=== PATIENT | female | born 1985 | race Hispanic/Latino ===

== ENCOUNTER 2018-07-02 19:23 | Emergency (ER) | payer MEDICAID, OTHER, SELFPAY ==
[2018-07-02 20:35] LABS: #Basophils 0.1 thou/uL (0.0-0.2); #Lymphocytes 2.5 thou/uL (1.20-3.40); #Monocytes 0.6 thou/uL (0.11-0.59); #Neutrophils 9.9 thou/uL (1.40-6.50); %Basophils 0.6 % (0.0-1.0); %Eosinophils 0.3 % (0.0-10.0); %Lymphocytes 18.9 % (21.0-51.0); %Monocytes 4.3 % (0.0-10.0); Mean Corpuscular HGB CONC 31.5 g/dL (32.0-36.0); Mean Corpuscular Hemoglobin 24.3 pg (27.0-31.0); Mean Corpuscular Volume 77.2 fL (78.0-98.0); Mean Platelet Volume 8.2 fL (7.4-10.4); Platelet Count 339 thou/uL (130-400); RBC Distribution Width 17.2 % (11.5-14.5); Red Blood Cell (RBC) Count 4.53 mill/uL (4.20-5.40)
[2018-07-02 21:47] LABS: Bilirubin Negative (Negative); Blood, Urine Negative (Negative); Clarity CLEAR (Clear); Glucose, Urine (Dipstick) Negative (Negative); Leukocyte Negative (Negative); Nitrite Negative (Negative); Protein, Urine (Dipstick) Negative (Neg-Trace); Urobilinogen 0.2 mg/dL (0.2-1.0); pH, Urine 5.5 (5.0-9.0)
== END 2018-07-02 23:15 | disposition home or self-care (01) ==
LOC: ERS 19:23
DX: O20.0 Threatened abortion (principal); Z3A.08 8 weeks gestation of pregnancy
CPT/HCPCS: 36415; 51701; 81003; 84702; 85025; 86900; 86901; A4353

== ENCOUNTER 2019-01-18 13:39 | Day surgery (SDC) | payer OTHER ==
[2019-01-18 14:12] VITALS: BP 117/65; TEMP 98.4
[2019-01-18 14:16] VITALS: BMI 32.8
[2019-01-18 14:36] LABS: Amnisure Test No Membranes Rupture (No Rupture)
[2019-01-18 14:37] LABS: Amnisure Internal Control QC ACCEPTABLE (ACCEPTABLE)
--- NOTE | 2019-01-18 18:54 | SS ---
DATE OF ADMISSION: 01/18/2019 DATE OF DISCHARGE: 01/18/2019 LABOR AND DELIVERY TRIAGE NOTE REGULAR PHYSICIAN: Josué Hernandez MD EVALUATING PHYSICIAN: Dillon Gupta MD CHIEF COMPLAINT: Contractions at home. HISTORY OF PRESENT ILLNESS: Ms. Avel Schwarz is a 33-year-old , G5, P3, with an estimated date of confinement of 02/12/2019, who presents complaining of irregular uterine contractions throughout the day. She denies ruptured membranes or vaginal bleeding. Her care has been with Dr. Hernandez and has been without complications. PAST OBSTETRICAL HISTORY: Includes one vaginal delivery followed by three C sections, one of which was . PAST MEDICAL HISTORY: None. PAST SURGICAL HISTORY: C-sections x3. CURRENT MEDICATIONS: vitamins and iron. ALLERGIES: NO KNOWN ALLERGIES. SOCIAL HISTORY: Denies tobacco, alcohol, or drug use. FAMILY HISTORY: Unremarkable. REVIEW OF SYSTEMS: Denies nausea, vomiting, fever, chills, vaginal bleeding, or ruptured membranes. PHYSICAL EXAMINATION: VITAL SIGNS: Stable and she is afebrile. GENERAL: In triage, she is pleasant and in no acute distress. ABDOMEN: Soft, nontender, and gravid. Pelvic examination initially shows the cervix to be fingertip thick and high per the labor nurse. An AmniSure was performed, and it is negative. heart rate tracing is stable and only an occasional contraction is seen. The patient is observed over an hour and I rechecked her myself. Cervical exam remained fingertip thick and high. ASSESSMENT: 1. 36.5 week intrauterine . 2. No evidence of active labor at this time. PLAN: The patient will be discharged home. She was given complete labor precautions. She states that she has an appointment with Dr. Hernandez in the next week. He was notified and is aware of the plan. Job ID: [id number] MTDD
== END 2019-01-18 16:20 | disposition home or self-care (01) ==
LOC: L&D/OP 13:39
PROVIDERS: ATTEND Family Medicine
DX: O47.03 False labor before 37 completed weeks of gestation, third trimester (principal); Z3A.36 36 weeks gestation of pregnancy; Z79.899 Other long term (current) drug therapy
CPT/HCPCS: 84112; 99284

== ENCOUNTER 2019-02-05 12:20 | Inpatient (IN) | payer OTHER, SELFPAY ==
[2019-02-05 12:49] VITALS: BMI 29.7
[2019-02-05] MEDS ORDERED: Butorphanol Tartrate 1 MG/ML VIAL SLOW IVP PRN (13:18)
[2019-02-05] MEDS ORDERED: Promethazine HCl 25 MG/ML VIAL IM PRN ×2 (13:18→17:51)
[2019-02-05] MEDS ORDERED: Ondansetron PF 4 MG/2 ML Vial IVP PRN ×3 (13:18→20:16)
--- NOTE | 2019-02-05 13:23 | PDOC.LDHP ---
Labor and Delivery H&P HPI: Patient of Dr David CERNA 39 weeks CC: possible CTX, Prior CS x 3 Location; Triage Time: [address]. Patient is a 33 yo living 3 (one IUFD at 26 weeks), prior CS x 3 (first delivery was vaginal)...here for possible CTX. No LOF, no VB , good FM. Review of systems: Complete ROS completed and as per HPI Current gestational age (weeks): 39 Dating criteria: last menstrual period Grav: 5 Para: 4 OB History Details: Living 3; CS x 3 Current complications: none Abnormal US findings: No Current medications: pre- vitamins Previous surgical history: low tranverse CS (x 3) Allergies/Adverse Reactions: Allergies Allergy/AdvReac Type Severity Reaction Status Date / Time No Allergy Information Allergy Verified 02/05/19 12:49 Available - Physical Exam Vital signs reviewed and normal: yes (109/68 98.2 90s afebrile) General: NAD Heart: RRR Lungs: CTAB Abdomen: gravid Extremeties: no edema FHT: category 1 [place] contractions every: irritability, irregular - Assessment 39 weeks (full term) with prior CS x 3, possible CTX. - Plan Plan: admit to L&D, anesthesia consult for pain management, other (As the patient is at 39 weeks with prior CS x 3, regardless of cervical exam..I am prefer to admit and repeat her CS today to prevent complications with persistent latent labor. I will communicate this to Dr Hernandez, and notify anesthesia. T&S as prior CS x 3. Routine admit labs. Check CX for record)
--- NOTE | 2019-02-05 13:29 | PDOC.EVN ---
Event Note - Event Note Event Note: Follow up: Per RN, Dr Hernandez would prefer not to perform a CS on her today. He has asked to check her cervix and place her in labor observation. He has requested a cervix check now then eval further prior to performing a CS. I have released care back to Dr Hernandez as her treating physician. Care and disposition per Dr Hernandez
[2019-02-05] MEDS ORDERED: Bicitra 30 ML UDCUP PO SCH (13:30)
[2019-02-05] MEDS ORDERED: CEFAZOLIN 2 GM in Premix Bag 1 BAG IVPB SCH (13:30)
[2019-02-05] MEDS: Lactated Ringer's 1,000 ML IV SCH ×2 (13:41→16:47)
[2019-02-05 13:58] LABS: Hemoglobin 10.3 g/dL (12.0-16.0); Mean Corpuscular HGB CONC 33.2 g/dL (32.0-36.0); Mean Corpuscular Hemoglobin 29.3 pg (27.0-31.0); Mean Corpuscular Volume 88.1 fL (78.0-98.0); Mean Platelet Volume 8.6 fL (7.4-10.4); Platelet Count 175 thou/uL (130-400); RBC Distribution Width 12.5 % (11.5-14.5); Red Blood Cell (RBC) Count 3.51 mill/uL (4.20-5.40); White Blood Cell (WBC) Count 6.9 thou/uL (4.8-10.8)
[2019-02-05 14:36] LABS: Syphilis Antibody Nonreactive (Nonreactive); Syphilis Antibody Index 0.03 S/CO (<1.00 Non-Reactive)
[2019-02-05 14:45] LABS: HBSAg Index 0.32 S/CO (0-0.99); HIV (1/2) Antibody/Antigen Non-Reactive (NonReactive); Hep B Surf Ag Non-Reactive S/CO (NonReactive)
[2019-02-05] MEDS ORDERED: Ketorolac Tromethamine 30 MG/ML VIAL ONE ×2 (16:36→17:07)
[2019-02-05] MEDS ORDERED: Ondansetron PF 4 MG/2 ML Vial ONE ×2 (16:36→17:07)
[2019-02-05] MEDS ORDERED: Dexamethasone 20 MG/5 ML VIAL ONE (16:36)
[2019-02-05] MEDS ORDERED: PHENYLEPHRINE-NS 100 MCG/ML 10 ML SYRINGE ONE ×2 (16:36→17:07)
[2019-02-05] MEDS ORDERED: MORPHINE 5 MG/10 ML PF VIAL ONE (17:06)
[2019-02-05] MEDS ORDERED: Fentanyl 100 MCG/2 ML VIAL ONE (17:06)
[2019-02-05] MEDS ORDERED: ePHEDrine/0.9% NaCl/PF SYRINGE 50 mg/10 ml ONE (17:07)
[2019-02-05] MEDS ORDERED: Oxytocin 10 UNITS/ML VIAL ONE (17:07)
[2019-02-05] MEDS ORDERED: Dexamethasone 4 mg/ml Vial ONE (17:07)
[2019-02-05] MEDS ORDERED: HYDROmorphone 2 MG/ML VIAL SLOW IVP PRN (17:51)
[2019-02-05] MEDS ORDERED: Ketorolac Tromethamine 30 MG/ML VIAL IVP PRN (17:51)
[2019-02-05] MEDS ORDERED: L&D-Morphine 4 MG/ML VIAL SLOW IVP PRN (17:51)
[2019-02-05] MEDS ORDERED: Naloxone HCl 0.4 mg/ml Vial IVP PRN ×2 (17:51)
[2019-02-05] MEDS ORDERED: diphenhydrAMINE 50 MG/ML VIAL IVP PRN (17:51)
[2019-02-05] MEDS ORDERED: Meperidine HCl/PF 25 MG/ML VIAL SLOW IVP PRN (17:51)
[2019-02-05] MEDS ORDERED: Eucerin (Mineral Oil/Petrolatum,White) 30 gm Jar TOP PRN (17:51)
[2019-02-05] MEDS ORDERED: Promethazine HCl 25 MG SUPP PR PRN (17:51)
[2019-02-05] MEDS ORDERED: Naloxone HCl 0.4 mg/ml Vial IV PRN (17:51)
[2019-02-05] MEDS ORDERED: Ondansetron HCl/PF 4 MG/2 ML Vial IVP PRN (17:51)
[2019-02-05] MEDS ORDERED: Communication Order-Pharmacy FS SCH (18:00)
[2019-02-05] MEDS ORDERED: Ketorolac Tromethamine 30 MG/ML VIAL IVP SCH (18:00)
[2019-02-05] MEDS ORDERED: Simethicone Chewable 80 MG TAB PO PRN (20:16)
[2019-02-05] MEDS ORDERED: Lactated Ringer's 1,000 ML IV SCH (20:16)
[2019-02-05] MEDS ORDERED: Bisacodyl 10 MG SUPP PR PRN (20:16)
[2019-02-05] MEDS ORDERED: Lanolin Ointment 7 GM TUBE TOP PRN (20:16)
[2019-02-05] MEDS ORDERED: NS / Oxytocin 40 units/1000ml 1,000 ML IV SCH (20:16)
[2019-02-05] MEDS ORDERED: diphenhydrAMINE 25 MG CAP PO PRN (20:16)
[2019-02-05] MEDS ORDERED: Meperidine HCl/PF 25 MG/ML VIAL IM PRN (20:16)
[2019-02-05] MEDS: Ibuprofen 800 MG TAB PO SCH (22:00)
[2019-02-05] MEDS: Ferrous Sulfate 325 MG TAB PO SCH (22:00)
[2019-02-05] MEDS: Docusate Calcium (SURFAK) 240 MG CAP PO SCH (22:00)
--- NOTE | 2019-02-05 23:50 | OP ---
DATE OF PROCEDURE: 02/05/2019 PROCEDURE PERFORMED: Repeat low-transverse section. SURGEON: Josué Hernandez MD PERFECT BINDER FEEDER OFFBEARER SURGEON: Bryce Summers MD. ANESTHESIA: Spinal. ESTIMATED BLOOD LOSS: 650 mL. QUANTITATIVE BLOOD LOSS: 520 mL. PREPROCEDURE DIAGNOSES: 1. Term intrauterine at 39.0 weeks in labor. 2. History of section x3. POSTPROCEDURE DIAGNOSES: 1. Term intrauterine , delivered. 2. History of section x3. 3. Mild abdominal adhesions. 4. Mild diastasis recti. INDICATIONS: Ms. Avel Schwarz is a 33-year-old 5, para 4-0-0-1 at 39.0 weeks, who presented to Labor and Delivery this afternoon with chief complaint of contractions. She is initially admitted to the Labor and Delivery for observation. When her contractions did not resolve, the decision was made to proceed with repeat section. DESCRIPTION OF PROCEDURE: The patient provided informed consent after risks, benefits, and alternatives were explained. She was taken to the operating room and spinal anesthesia was initiated. She was then placed in the supine position with left lateral tilt and prepped and draped in the usual sterile fashion. She received preoperative antibiotics of Ancef 2 g IV. Pfannenstiel skin incision was made with a scalpel and carried down to the level of fascia which was sharply nicked. The fascial incision was extended in the superior lateral fashion using curved Mendez scissors. At this time, there were peritoneal adhesions noted to the upper portion of the fascia and as the fascia was dissected away from the underlying rectus muscles, the abdominal cavity was entered bluntly under direct visualization. The remaining rectus muscles and peritoneum were then retracted manually. Bladder blade was placed and the lower uterine segment was visualized. A bladder flap was made using Metzenbaum scissors. Low transverse score was made with a clean scalpel and the uterine cavity was entered sharply in the midline. Clear fluid was noted at this time. Hysterotomy was extended manually. The 's head was manually elevated to the hysterotomy and delivered through using fundal pressure. Nuchal cord x2 was noted and was easily reduced prior to delivery of the body. Delayed cord clamping was utilized for 30 seconds before the cord was cut and clamped and the infant was handed off to the awaiting [place] [facility]. Cord blood was collected for analysis and the placenta was manually extracted. The uterus was exteriorized and the apices and lower segment were identified and clamped with ring forceps. The hysterotomy was closed using an 0 Vicryl suture in a running locking fashion. Two figure-of- eight stitches using 0 Vicryl were required to control hemostasis along the hysterotomy. Seprafilm was placed and the uterus was placed back in the abdominal cavity. Hysterotomy was inspected a final time and noted to be hemostatic. The perineum was reapproximated using a 3-0 Vicryl suture in a running nonlocking fashion. The fascia and subcutaneous tissues were inspected and all bleeding vessels were controlled with the Bovie cautery. The fascia was reapproximated using 0 PDS in a running nonlocking fashion. Subcutaneous tissues were irrigated before being reapproximated using 3 simple interrupted 3-0 Vicryl sutures. Skin was reapproximated with martina. A pressure dressing was applied. Counts were correct x3. The patient will go to the unit after routine care and recovery. Both the patient and the child tolerated the procedure well. FINDINGS: 1. Intact grossly normal-appearing placenta with 3-vessel cord discarded. 2. Grossly normal viable male infant, born at 17:40 with Apgars of 9 and 9 at 1 and 5 minutes respectively. 3. Mild intraabdominal adhesions that did not complicate the surgery. 4. Soriano catheter draining clear urine pre- and postoperatively. Dr. Hernandez was present in the OR for the entire procedure. Job ID: [id number] [facility]
[2019-02-06] MEDS: Ibuprofen 800 MG TAB PO SCH ×3 (07:34→15:34)
[2019-02-06] MEDS: Prenatal Vitamin 1 TAB PO SCH (08:22)
[2019-02-06] MEDS: Ferrous Sulfate 325 MG TAB PO SCH (08:23)
[2019-02-06] MEDS: Docusate Calcium (SURFAK) 240 MG CAP PO SCH ×2 (08:23→21:01)
[2019-02-06 08:27] LABS: Hemoglobin 9.2 g/dL (12.0-16.0); Mean Corpuscular HGB CONC 34.5 g/dL (32.0-36.0); Mean Corpuscular Hemoglobin 29.9 pg (27.0-31.0); Mean Corpuscular Volume 86.7 fL (78.0-98.0); Mean Platelet Volume 8.9 fL (7.4-10.4); Platelet Count 168 thou/uL (130-400); RBC Distribution Width 12.3 % (11.5-14.5); Red Blood Cell (RBC) Count 3.08 mill/uL (4.20-5.40); White Blood Cell (WBC) Count 11.3 thou/uL (4.8-10.8)
[2019-02-06] MEDS: HYDROcodone/Acetaminophen 5/325 mg Tablet PO PRN ×2 (13:29→21:03)
[2019-02-07] MEDS: Ibuprofen 800 MG TAB PO SCH ×4 (00:27→22:19)
[2019-02-07] MEDS: Ferrous Sulfate 325 MG TAB PO SCH ×3 (02:21→20:52)
[2019-02-07] MEDS: Prenatal Vitamin 1 TAB PO SCH (09:22)
[2019-02-07] MEDS: Docusate Calcium (SURFAK) 240 MG CAP PO SCH ×2 (09:22→20:48)
[2019-02-07] MEDS: HYDROcodone/Acetaminophen 5/325 mg Tablet PO PRN ×3 (09:22→20:47)
[2019-02-08] MEDS: HYDROcodone/Acetaminophen 5/325 mg Tablet PO PRN ×2 (04:31→08:41)
[2019-02-08] MEDS: Ibuprofen 800 MG TAB PO SCH (06:26)
[2019-02-08] MEDS: Prenatal Vitamin 1 TAB PO SCH (08:41)
[2019-02-08] MEDS: Docusate Calcium (SURFAK) 240 MG CAP PO SCH (08:41)
[2019-02-08] MEDS: Ferrous Sulfate 325 MG TAB PO SCH (08:41)
[2019-02-08 08:49] VITALS: BP 102/58; TEMP 98.2
== END 2019-02-08 11:40 | disposition home or self-care (01) | DRG 788 ==
LOC: L&D/OP 12:20 → L&D 17:10 → 3SW 20:38
PROVIDERS: ADMIT Family Medicine; ATTEND Family Medicine
PROC: 10D00Z1 Extraction of Products of Conception, Low, Open Approach (ICD-10-PCS; principal; 2019-02-05)
DX: O34.211 Maternal care for low transverse scar from previous cesarean delivery (principal); Z37.0 Single live birth; O71.89 Other specified obstetric trauma; O69.81X0 Labor and delivery complicated by cord around neck, without compression, not applicable or unspecified; Z3A.39 39 weeks gestation of pregnancy
CPT/HCPCS: 36415; 51702; 85027; 86780; 86850; 86900; 86901; 87340; 87389; 99285; J0690; J1100; J1885; J2270; J2405; J2590; J3010